=== PATIENT | female | born 1975 | race African-American/Black ===

== ENCOUNTER 2018-06-05 07:42 | Day surgery (SDC) | payer BC ==
[2018-06-04 13:58] VITALS: BMI 32.5
[2018-06-05 09:06] VITALS: TEMP 98
[2018-06-05 10:18] VITALS: BP 110/70; PULSE 77
== END 2018-06-05 10:10 | disposition home or self-care (01) ==
LOC: JASU-ENDO 07:42
PROVIDERS: ATTEND Internal Medicine Gastroenterology
PROC: 0DJD8ZZ Inspection of Lower Intestinal Tract, Via Natural or Artificial Opening Endoscopic (ICD-10-PCS; principal; 2018-06-05 08:30)
DX: Z12.11 Encounter for screening for malignant neoplasm of colon (principal); K64.8 Other hemorrhoids; K57.30 Diverticulosis of large intestine without perforation or abscess without bleeding
CPT/HCPCS: 84703